=== PATIENT | female | born 2005 | race Caucasian/White ===

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

== ENCOUNTER → 2024-02-04 | Outpatient (CLI) | payer BC, MEDICAID ==
[~2024-02-04] MED LIST changes: +DICY-61 PO; -DICY10CA13 PO
[2024-02-04 14:20] LABS: BASO % 0.3 % (0.0-1.0); EOS # 0.1 10^3/uL (0.0-0.5); EOS % 0.8 % (0.0-3.0); HEMATOCRIT 42.7 % (36.0-47.0); HEMOGLOBIN 14.1 g/dl (12.0-15.5); LYMPH # 1.4 10^3/uL (1.5-5.0); LYMPH % 22.1 % (24.0-44.0); MEAN CORPUSCULAR HEMOGLOBIN 29.6 pg (27.0-33.0); MEAN CORPUSCULAR VOLUME 89.7 fl (80.0-96.0); MONO # 0.4 10^3/uL (0.0-0.8); MONO % 6.5 % (2.0-8.0); NEUTROPHILS # 4.3 10^3/uL (1.5-8.5); PLATELET COUNT, AUTOMATED 206 10^3/uL (150-450); RED BLOOD COUNT 4.76 10^6/uL (4.00-5.40); WHITE BLOOD COUNT 6.1 10^3/uL (4.0-10.0)
[2024-02-04 14:27] LABS: ERYTHROCYTE SEDIMENTATION RATE 3 mm/hr (0-20)
[2024-02-04 14:45] LABS: RHEUMATOID FACTOR QUANT < 3.5 IU/ML (<14)
[2024-02-04 14:46] LABS: ALKALINE PHOSPHATASE 84 U/L (46-116); ALT/SGPT 10 U/L (7.0-40); AST/SGOT 16 U/L (<34); BILIRUBIN,TOTAL 1.5 MG/DL (0.3-1.2); BLOOD UREA NITROGEN 15 MG/DL (9-23); CALCIUM LEVEL 8.9 MG/DL (8.5-10.1); CARBON DIOXIDE LEVEL 28 MMOL/L (20-31); CHLORIDE LEVEL 109 MMOL/L (98-107); GLUCOSE, FASTING 88 MG/DL (60-100); POTASSIUM SERUM 4.1 MMOL/L (3.5-5.1); SODIUM LEVEL 139 MMOL/L (136-145); TOTAL PROTEIN 6.8 G/DL (5.7-8.2)
[2024-02-04 14:48] LABS: FOLATE 22.7 NG/ML (>5.4); VITAMIN B12 LEVEL 228 PG/ML (211-911)
[2024-02-04 14:51] LABS: HEMOGLOBIN A1c 4.6 % (4.0-6.0)
[2024-02-05 12:09] LABS: ANTINUCLEAR ANTIBODIES DIRECT Negative (Negative)
[2024-02-08 14:08] LABS: VITAMIN E(ALPHA TOCOPHEROL) 8.1 mg/L (5.9-19.4); VITAMIN E(GAMMA TOCOPHEROL) 1.4 mg/L (0.7-4.9)
== END ==
LOC: M LAB 13:42
PROVIDERS: ATTEND Psychiatry & Neurology Neurology
DX: R51.9 Headache, unspecified (principal); R20.2 Paresthesia of skin